=== PATIENT | male | born 1985 | race Caucasian/White ===

== ENCOUNTER → 2022-07-20 | Emergency (ER) | payer OTHER ==
[~2022-07-20] VITALS: Ht 167.6 cm; Wt 61.2 kg
[~2022-07-20] MED LIST: XHANCE16 ML; ZITHROMAX500 MG PO
== END | disposition home or self-care (01) ==
LOC: ER 11:35
DX: J03.90 Acute tonsillitis, unspecified (principal); Z88.2 Allergy status to sulfonamides

== ENCOUNTER 2023-01-22 05:32 | Emergency (ER) | payer OTHER ==
[~2023-01-22] VITALS: Ht 182.9 cm; Wt 113.4 kg
== END 2023-01-22 11:05 | disposition home or self-care (01) ==
LOC: ER 05:32
DX: M54.50 Low back pain, unspecified (principal); Z88.2 Allergy status to sulfonamides